=== PATIENT | female | born 1955 | race Caucasian/White ===

== ENCOUNTER 2016-11-03 21:35 | Emergency (ER) | payer BC | END 2016-11-04 00:31 | disposition home or self-care (01) | LOC: ER 21:35 | DX: S90.32XA Contusion of left foot, initial encounter (principal); S93.105A Unspecified dislocation of left toe(s), initial encounter; W19.XXXA Unspecified fall, initial encounter; Y92.003 Bedroom of unspecified non-institutional (private) residence as the place of occurrence of the external cause; I10 Essential (primary) hypertension; E78.5 Hyperlipidemia, unspecified; Z88.2 Allergy status to sulfonamides; Z79.899 Other long term (current) drug therapy | CPT/HCPCS: 73630; 73660; 99283-25 ==